=== PATIENT | female | born 1960 | race Caucasian/White ===

== ENCOUNTER 2018-06-27 09:49 | Inpatient (IN) | payer OTHER ==
--- NOTE | 2018-06-27 10:32 | ER ---
Nurse's Notes [facility] Name: Keisha Dave Age: 57 yrs Sex: Female : 1960 Arrival Date: 06/27/2018 Time: 09:52 Bed 6 Private MD: Deven Davis Diagnosis: Pneumonia due to other specified bacteria;Dyspnea;Fever, unspecified;Weakness;Atelectasis;Hypokalemia-hypophosphotemia Presentation: 06/27 09:55 Presenting complaint: Patient states: cough x 2 weeks ago. Pt states "they started aa5 treating me two weeks ago with penicillin for a throat infection and right now I am taking Keflex and Tamiflu". Pt reports productive cough with green sputum and SOB x 2 days ago. Pt reports chest pain and back pain. 09:55 Transition of care: patient was not received from another setting of care. Onset of aa5 symptoms was June 2018. Risk Assessment: Do you want to hurt yourself or someone else? Patient reports no desire to harm self or others. Care prior to arrival: None. 09:55 Acuity: CHRISTINE 3 aa5 09:55 Method Of Arrival: Wheelchair aa5 10:08 Initial Sepsis Screen: Does the patient meet any 2 criteria? RR > 20 per min. HR > 90 tw2 bpm. Does the patient have a suspected source of infection? Yes: Productive cough/pneumonia. Triage Assessment: 11:38 General: Appears in no apparent distress. Respiratory: Onset: The symptoms/episode tw2 began/occurred 2 weeks ago, the patient has mild shortness of breath. Historical: - Allergies: 09:55 No Known Allergies; aa5 - Home Meds: 09:55 Prozac 60mg daily Oral [Active]; aa5 - PMHx: 09:55 Hernia; aa5 - PSHx: 09:55 Hysterectomy; ; aa5 - Immunization history:: Flu vaccine is not up to date. - Social history:: Smoking status: Patient/guardian denies using tobacco. - Ebola Screening: : No symptoms or risks identified at this time. Screenin:07 Abuse screen: Denies threats or abuse. Nutritional screening: No deficits noted. tw2 Tuberculosis screening: No symptoms or risk factors identified. Fall Risk None identified. Assessment: 10:07 Respiratory: Reports shortness of breath cough that is productive, Airway is patent tw2 Respiratory effort is even, unlabored, Respiratory pattern is regular, symmetrical. 10:10 General: Appears in no apparent distress. Behavior is calm, cooperative, appropriate tw2 for age. Pain: Denies pain. Neuro: Level of Consciousness is awake, alert, obeys commands, Oriented to person, place, time, situation. Cardiovascular: Heart tones S1 S2 Patient's skin is warm and dry. Rhythm is regular. Respiratory: Respiratory pattern is tachypnea Breath sounds with wheezes in right posterior lower lobe and right posterior middle lobe and right lower lobe and right middle lobe. GI: No signs and/or symptoms were reported involving the gastrointestinal system. Abdomen is flat, Bowel sounds present X 4 quads. : No signs and/or symptoms were reported regarding the genitourinary system. EENT: Reports nasal congestion nasal discharge. Derm: No signs and/or symptoms reported regarding the dermatologic system. Musculoskeletal: Range of motion: intact in all extremities. 11:36 Reassessment: Patient appears in no apparent distress at this time. Patient and/or tw2 family updated on plan of care and expected duration. Pain level reassessed. Patient is alert, oriented x 3, equal unlabored respirations, skin warm/dry/pink. 12:02 Reassessment: Patient appears in no apparent distress at this time. Patient and/or tw2 family updated on plan of care and expected duration. Pain level reassessed. Patient is alert, oriented x 3, equal unlabored respirations, skin warm/dry/pink. 13:20 Reassessment: Patient appears in no apparent distress at this time. Patient and/or tw2 family updated on plan of care and expected duration. Pain level reassessed. Patient is alert, oriented x 3, equal unlabored respirations, skin warm/dry/pink. Vital Signs: 10:05 BP 111 / 83; Pulse 104; Resp 22; Temp 99.6(TE); Pulse Ox 100% on R/A; Weight 82.55 kg aa5 (R); Height 5 ft. 4 in. (162.56 cm) (R); Pain 10/10; 11:00 BP 121 / 68; Pulse 106; Resp 22; Pulse Ox 100% on R/A; tw2 12:01 BP 116 / 72; Pulse 112; Resp 22; Pulse Ox 100% on R/A; tw2 12:37 BP 111 / 81; Pulse 107; Resp 19; Pulse Ox 100% on R/A; tw2 10:05 Body Mass Index 31.24 (82.55 kg, 162.56 cm) aa5 ED Course: 09:52 Patient arrived in ED. mr 09:53 Deven Davis MD is Private Physician. mr 09:55 Arm band placed on. aa5 10:03 Thad Baptiste MD is Attending Physician. veronica 10:05 Triage completed. aa5 10:07 Kelly Castaneda RN is Primary Nurse. tw2 10:08 Bed in low position. Call light in reach. Adult w/ patient. gradall operator on. Pulse tw2 ox on. NIBP on. 10:27 Deven Davis MD is Hospitalizing Provider. veronica 10:29 Mary Fitzgerald MD is Hospitalizing Provider. veronica 10:30 Inserted saline lock: 20 gauge in right antecubital area, using aseptic technique. tw2 Blood collected. 10:47 EKG done, by cat scan tech. reviewed by Thad Baptiste MD. at1 11:26 X-ray completed. Portable x-ray completed in exam room. Patient tolerated procedure sw well. 11:28 XRAY Chest (1 view) In Process Unspecified. EDMS 12:38 Awaiting: attempted to call report at this time, was told nurse was giving insulin and tw2 would have to call me back. 13:20 No provider procedures requiring assistance completed. tw2 13:20 Patient admitted, IV remains in place. tw2 Administered Medications: 10:35 Drug: SOLU-Medrol 125 mg Route: IVP; Site: right antecubital; tw2 11:52 Follow up: Response: No adverse reaction tw2 10:39 Drug: NS 0.9% 1000 ml Route: IV; Rate: 1 bolus; Site: right antecubital; tw2 11:52 Follow up: Response: No adverse reaction; IV Status: Completed infusion; IV Intake: tw2 1000ml 10:39 Drug: Rocephin 2 grams Route: IV; Rate: per protocol; Site: right antecubital; tw2 10:49 Follow up: Response: No adverse reaction; IV Status: Completed infusion tw2 10:39 Drug: Albuterol - atroVENT (3:1) (2.5 mg - 0.5 mg) 3 ml Route: Nebulizer; tw2 11:53 Follow up: Response: No adverse reaction tw2 11:30 Drug: Zithromax 500 mg Route: IVPB; Infused Over: 1 hrs; Site: right antecubital; tw2 12:35 Follow up: IV Status: Completed infusion tw2 12:03 Drug: Potassium Effervescent Tablet 50 mEq Route: PO; tw2 12:39 Follow up: Response: No adverse reaction tw2 12:39 Drug: NS 0.9% with KCl 20 mEq/L 1000 ml Route: IV; Rate: 125 ml/hr; Site: right tw2 antecubital; 13:10 Follow up: IV Status: Infusion continued upon admission tw2 13:10 Not Given (pt admitted to floor, PEYTON Victoria aware to replace per protocol): Potassium tw2 Phosphate 15 mmol IV at per protocol once; dose as phosphate; infuse over 4-6 hours (mix in 250 mL NS) Intake: 11:52 IV: 1000ml; Total: 1000ml. tw2 Outcome: 10:32 Decision to Hospitalize by Provider. [facility] 13:20 Patient left the ED. tw2 13:20 Admitted to Med/surg accompanied by tech, via wheelchair. tw2 13:20 Condition: stable 13:20 Instructed on the need for admit. Signatures: Dispatcher [employer] EDThad Brantley MD MD cha Rivera, Jacquelyn ayers SuhNiharika, RN RN aa5 Nimo Garcia, armature winder repairer EKG Tat1 Carrie Raphael Tara RN RN tw2 Corrections: (The following items were deleted from the chart) 10:05 09:55 Presenting complaint: Patient states: cough x 2 weeks ago. Pt states "they aa5 started treating me two weeks ago with penicillin for a throat infection and right now I am taking Keflex and Tamiflu". Pt reports productive cough with green sputum and SOB x 2 days ago. aa5
[2018-06-27] MEDS ORDERED: CEFTRIAXONE/SWI 1gm 2 GM/20 ML SYR ONE (10:33)
[2018-06-27] MEDS ORDERED: IPRATROPIUM BROM 0.5MG/2.5ML ONE (10:33)
[2018-06-27] MEDS ORDERED: NA CHLORIDE 0.9% 1,000 ML ONE (10:33)
[2018-06-27] MEDS ORDERED: ALBUTEROL 2.5 MG/3 ML NEB SOL ONE (10:33)
--- NOTE | 2018-06-27 10:33 | EDPHYS ---
Physician Documentation [facility] Name: Keisha Dave Age: 57 yrs Sex: Female : 1960 Arrival Date: 06/27/2018 Time: 09:52 Bed 6 Private MD: Deven Davis ED Physician Thad Baptiste HPI: 06/27 10:17 This 57 yrs old Female presents to ER via Wheelchair with complaints of veronica Shortness Of Breath, Cough. 10:17 The patient has shortness of breath at rest, with light activity. Onset: The veronica symptoms/episode began/occurred 5 day(s) ago. Duration: The symptoms are continuous, and are steadily getting worse. The patient's shortness of breath has no apparent modifying factors. Associated signs and symptoms: The patient has no apparent associated signs or symptoms. Severity of symptoms: At their worst the symptoms were mild in the emergency department the symptoms are unchanged. The patient has not experienced similar symptoms in the past. Historical: - Allergies: 09:55 No Known Allergies; aa5 - Home Meds: 09:55 Prozac 60mg daily Oral [Active]; aa5 - PMHx: 09:55 Hernia; aa5 - PSHx: 09:55 Hysterectomy; ; aa5 - Immunization history:: Flu vaccine is not up to date. - Social history:: Smoking status: Patient/guardian denies using tobacco. - Ebola Screening: : No symptoms or risks identified at this time. ROS: 10:18 Constitutional: Negative for fever, chills, and weight loss, Eyes: Negative for injury, veronica pain, redness, and discharge, ENT: Negative for injury, pain, and discharge, Neck: Negative for injury, pain, and swelling, Cardiovascular: Negative for chest pain, palpitations, and edema, Abdomen/GI: Negative for abdominal pain, nausea, vomiting, diarrhea, and constipation, Back: Negative for injury and pain, : Negative for injury, bleeding, discharge, and swelling, MS/Extremity: Negative for injury and deformity, Skin: Negative for injury, rash, and discoloration, Neuro: Negative for headache, weakness, numbness, tingling, and seizure, Psych: Negative for depression, anxiety, suicide ideation, homicidal ideation, and hallucinations, Allergy/Immunology: Negative for hives, rash, and allergies, Endocrine: Negative for neck swelling, polydipsia, polyuria, polyphagia, and marked weight changes, Hematologic/Lymphatic: Negative for swollen nodes, abnormal bleeding, and unusual bruising. 10:18 Respiratory: Positive for cough, pleurisy, of the right subscapular area and right mid back, shortness of breath. Exam: 10:18 Constitutional: This is a well developed, well nourished patient who is awake, alert, veronica and in no acute distress. Head/Face: Normocephalic, atraumatic. Eyes: Pupils equal round and reactive to light, extra-ocular motions intact. Lids and lashes normal. Conjunctiva and sclera are non-icteric and not injected. Cornea within normal limits. Periorbital areas with no swelling, redness, or edema. ENT: Nares patent. No nasal discharge, no septal abnormalities noted. Tympanic membranes are normal and external auditory canals are clear. Oropharynx with no redness, swelling, or masses, exudates, or evidence of obstruction, uvula midline. Mucous membranes moist. Neck: Trachea midline, no thyromegaly or masses palpated, and no cervical lymphadenopathy. Supple, full range of motion without nuchal rigidity, or vertebral point tenderness. No Meningismus. Chest/axilla: Normal chest wall appearance and motion. Nontender with no deformity. No lesions are appreciated. Cardiovascular: Regular rate and rhythm with a normal S1 and S2. No gallops, murmurs, or rubs. Normal PMI, no JVD. No pulse deficits. Abdomen/GI: Soft, non-tender, with normal bowel sounds. No distension or tympany. No guarding or rebound. No evidence of tenderness throughout. Back: No spinal tenderness. No costovertebral tenderness. Full range of motion. Female : Normal external genitalia. Skin: Warm, dry with normal turgor. Normal color with no rashes, no lesions, and no evidence of cellulitis. MS/ Extremity: Pulses equal, no cyanosis. Neurovascular intact. Full, normal range of motion. Neuro: Awake and alert, GCS 15, oriented to person, place, time, and situation. Cranial nerves II-XII grossly intact. Motor strength 5/5 in all extremities. Sensory grossly intact. Cerebellar exam normal. Normal gait. Psych: Awake, alert, with orientation to person, place and time. Behavior, mood, and affect are within normal limits. 10:18 Respiratory: mild respiratory distress is noted, Respirations: labored breathing, that is mild, Breath sounds: bronchial sounds, decreased breath sounds, rhonchi, wheezing: inspiratory expiratory is heard in the right middle lobe, right lower lobe, right posterior middle lobe and right posterior lower lobe. Vital Signs: 10:05 BP 111 / 83; Pulse 104; Resp 22; Temp 99.6(TE); Pulse Ox 100% on R/A; Weight 82.55 kg aa5 (R); Height 5 ft. 4 in. (162.56 cm) (R); Pain 10/10; 11:00 BP 121 / 68; Pulse 106; Resp 22; Pulse Ox 100% on R/A; tw2 12:01 BP 116 / 72; Pulse 112; Resp 22; Pulse Ox 100% on R/A; tw2 12:37 BP 111 / 81; Pulse 107; Resp 19; Pulse Ox 100% on R/A; tw2 10:05 Body Mass Index 31.24 (82.55 kg, 162.56 cm) aa5 MDM: 10:03 Patient medically screened. [facility] [place] 10:21 Data reviewed: vital signs, nurses notes, lab test result(s), EKG, radiologic studies, veronica plain films. 06/27 10:17 Order name: Basic Metabolic Panel; Complete Time: 11:51 [facility] [place] 06/27 10:17 Order name: CBC with Diff; Complete Time: 11:39 [facility] [place] 06/27 10:17 Order name: LFT's; Complete Time: 11:51 [facility] [place] 06/27 10:17 Order name: Magnesium; Complete Time: 11:51 [facility] [place] 06/27 10:17 Order name: NT PRO-BNP; Complete Time: 11:51 [facility] [place] 06/27 10:17 Order name: PT-INR; Complete Time: 11:39 [facility] [place] 06/27 10:17 Order name: Troponin (emerg Dept Use Only); Complete Time: 11:51 [facility] [place] 06/27 10:17 Order name: XRAY Chest (1 view); Complete Time: 11:46 [facility] [place] 06/27 10:17 Order name: Blood Culture Adult (2) [facility] [place] 06/27 10:17 Order name: Procalcitonin; Complete Time: 11:39 [facility] [place] 06/27 11:50 Order name: Phosphorus 06/27 11:52 Order name: Urine Dipstick--Ancillary (enter results) 06/27 10:17 Order name: EKG; Complete Time: 10:18 [facility] [place] 06/27 10:17 Order name: Cardiac monitoring; Complete Time: 10: [facility] [place] 06/27 10:17 Order name: EKG - Nurse/Tech; Complete Time: 10:40 [facility] [place] 06/27 10:17 Order name: IV Saline Lock; Complete Time: 10:20 [facility] [place] 06/27 10:17 Order name: Labs collected and sent; Complete Time: 10:20 [facility] [place] 06/27 10:17 Order name: O2 Per Protocol; Complete Time: 10:20 [facility] [place] 06/27 10:17 Order name: O2 Sat Monitoring; Complete Time: 10:19 [facility] [place] Administered Medications: 10:35 Drug: SOLU-Medrol 125 mg Route: IVP; Site: right antecubital; tw2 11:52 Follow up: Response: No adverse reaction tw2 10:39 Drug: NS 0.9% 1000 ml Route: IV; Rate: 1 bolus; Site: right antecubital; tw2 11:52 Follow up: Response: No adverse reaction; IV Status: Completed infusion; IV Intake: tw2 1000ml 10:39 Drug: Rocephin 2 grams Route: IV; Rate: per protocol; Site: right antecubital; tw2 10:49 Follow up: Response: No adverse reaction; IV Status: Completed infusion tw2 10:39 Drug: Albuterol - atroVENT (3:1) (2.5 mg - 0.5 mg) 3 ml Route: Nebulizer; tw2 11:53 Follow up: Response: No adverse reaction tw2 11:30 Drug: Zithromax 500 mg Route: IVPB; Infused Over: 1 hrs; Site: right antecubital; tw2 12:35 Follow up: IV Status: Completed infusion tw2 12:03 Drug: Potassium Effervescent Tablet 50 mEq Route: PO; tw2 12:39 Follow up: Response: No adverse reaction tw2 12:39 Drug: NS 0.9% with KCl 20 mEq/L 1000 ml Route: IV; Rate: 125 ml/hr; Site: right tw2 antecubital; 13:10 Follow up: IV Status: Infusion continued upon admission tw2 13:10 Not Given (pt admitted to floor, PEYTON Victoria aware to replace per protocol): Potassium tw2 Phosphate 15 mmol IV at per protocol once; dose as phosphate; infuse over 4-6 hours (mix in 250 mL NS) Disposition: 06/27/18 10:32 Hospitalization ordered by Mary Fitzgerald for Inpatient Admission. Preliminary diagnosis are Pneumonia due to other specified bacteria, Dyspnea, Fever, unspecified, Weakness, Atelectasis, Hypokalemia - hypophosphotemia. - Bed requested for Telemetry/MedSurg (Inpatient). - Status is Inpatient Admission. tw2 - Condition is Fair. - Problem is new. - Symptoms have improved. UTI on Admission? No Signatures: Dispatcher [employer] EDMS Carolyn Angel RN RN dw Thad Baptiste MD MD cha Calderon, Audri RN RN aa5 Kelly Castaneda RN RN tw2 Corrections: (The following items were deleted from the chart) 11:51 10:32 Hospitalization Ordered by Mary Fitzgerald MD for Inpatient Admission. Preliminary veronica diagnosis is Pneumonia due to other specified bacteria; Dyspnea; Fever, unspecified; Weakness. Bed requested for Telemetry/MedSurg (Inpatient). Status is Inpatient Admission. Condition is Fair. Problem is new. Symptoms have improved. UTI on Admission? No. veronica 12:26 11:51 06/27/2018 10:32 Hospitalization Ordered by Mary Fitzgerald MD for Inpatient dw Admission. Preliminary diagnosis is Pneumonia due to other specified bacteria; Dyspnea; Fever, unspecified; Weakness; Atelectasis; Hypokalemia. Bed requested for Telemetry/MedSurg (Inpatient). Status is Inpatient Admission. Condition is Fair. Problem is new. Symptoms have improved. UTI on Admission? No. veronica 13:04 12:26 06/27/2018 10:32 Hospitalization Ordered by Mary Fitzgerald MD for Inpatient veronica Admission. Preliminary diagnosis is Pneumonia due to other specified bacteria; Dyspnea; Fever, unspecified; Weakness; Atelectasis; Hypokalemia. Bed requested for Telemetry/MedSurg (Inpatient). Status is Inpatient Admission. Condition is Fair. Problem is new. Symptoms have improved. UTI on Admission? No. divina 13:20 13:04 06/27/2018 10:32 Hospitalization Ordered by Mary Fitzgerald MD for Inpatient tw2 Admission. Preliminary diagnosis is Pneumonia due to other specified bacteria; Dyspnea; Fever, unspecified; Weakness; Atelectasis; Hypokalemia - hypophosphotemia. Bed requested for Telemetry/MedSurg (Inpatient). Status is Inpatient Admission. Condition is Fair. Problem is new. Symptoms have improved. UTI on Admission? No. veronica
[2018-06-27] MEDS ORDERED: METHYLPREDNISOLONE 125 MG INJ ONE (10:36)
[2018-06-27] MEDS ORDERED: AZITHROMYCIN IV 500 MG in NA CHLORIDE 0.9% 250 ML IVPB ONE (10:45)
[2018-06-27 11:03] LABS: Absolute Lymphocytes (CBC) 1.3 K/uL (0.7-4.9); Absolute Monocytes 0.7 K/uL (0.1-1.3); Absolute Neutrophil 8.8 K/uL (1.8-8.0); Basophils % 0.3 % (0-1.3); Eosinophils % 0.3 % (0-4.4); Hematocrit 40.4 % (36.0-45.0); Lymphocytes % 12.1 % (15.3-44.8); MPV 9.5 fL (7.6-11.3); Monocytes % 6.6 % (3.3-12.3); Protime INR 1.1; RBC Red Blood Cell Count 4.38 M/uL (3.86-4.86)
--- NOTE | 2018-06-27 11:38 | RAD REPORT ---
EXAM DESCRIPTION: Linda Single View06/27/2018 11:26 am CLINICAL HISTORY: Cough COMPARISON: 2017 FINDINGS: Mild left upper lobe opacity suspected. Remainder lungs appear clear of acute infiltrate. The heart is normal size IMPRESSION: Mild left upper lobe opacity is suspected suspicious for a mild pneumonia. This should b e followed until it is clear to help exclude a post obstructive process/underlying mass
[2018-06-27 11:40] LABS: ALT/SGPT 42 U/L (12-78); AST/SGOT 31 U/L (15-37); Albumin 3.7 g/dL (3.4-5.0); Alkaline Phosphatase 109 U/L (45-117); BUN Blood Urea Nitrogen 12 mg/dL (7-18); Bicarbonate 26 mmol/L (21-32); Bilirubin Direct 0.2 mg/dL (0-0.2); Bilirubin Total 0.8 mg/dL (0.2-1.0); Glucose Level 119 mg/dL (74-106); NT PRO-BNP 46 pg/mL (<125); Protein, Total 8.2 g/dL (6.4-8.2); Sodium Level 135 mmol/L (136-145); Troponin (Emerg Dept Use Only) < 0.02 ng/mL (0.0-0.045)
[2018-06-27 11:46] LABS: Potassium 2.6 mmol/L (3.5-5.1)
[2018-06-27] MEDS ORDERED: POTASSIUM 25 MEQ EFFERV TAB ONE (12:07)
[2018-06-27] MEDS ORDERED: NS KCL 20MEQ 1,000 ML IV ONE (12:07)
--- NOTE | 2018-06-27 12:22 | P.HP ---
Patient History Date of Service: 06/27/18 History of Present Illness: This is a 57-year-old female with a past medical history depression admitted for pneumonia. Per patient, she has been feeling very sick for the past 1-2 weeks, with cough and congestion along with sore throat. She went to her primary care physician and she was sent in a prescription for penicillin based antibiotic that she took oral. Progressively, she got worst even after the dose of antibiotics. She started developing fever along with body aches. She again returned to her primary care physician and she was switched to Keflex and she will also was sent for Tamiflu. She has not completed a course of Tamiflu yet but almost half of it. Even after the change to Keflex and the Tamiflu, she has been progressively getting worse. Now she has developed pain in the right lower chest area along with cough and states that it feels like a stabbing pain. She continues to have intermittent fevers and chills. She denies any abdominal pain, nausea, headache, dizziness, lightheadedness, syncopal versus presyncopal episode. This is why she could came to the ER. In the ER, she was tachycardic, tachypneic. She was noted to have a potassium of 2.6. She did not have a white count and her other lab work was pretty unremarkable. At the time of my exam, patient was alert oriented x3 in mild to moderate distress, tachycardic to 112 with stable blood pressures. Allergies No Known Allergies Allergy (Unverified 06/27/18 10:29) Home Medications: Memantine HCl [Namenda] 10 mg PO BEDTIME 03/05/15 Codeine/APAP [Tylenol #3*] 1 tab PO Q4HP PRN #20 01/01/17 NaCl 0.9% Irr Bottle [Ns Irrigation Bottle] 1,000 ml IR DAILY #1 btl 01/01/17 - Past Medical/Surgical History Diabetic: No -: Depression -: bilat knee sx -: -: hysterectomy -: tummy tuck -: back sx - Social History Smoking Status: Never smoker Alcohol use: Yes CD- Drugs: No Caffeine use: No Review of Systems 10-point ROS is otherwise unremarkable Physical Examination - Physical Exam General: Alert, In no apparent distress, Oriented x3 HEENT: Atraumatic, PERRLA, Mucous membr. moist/pink, EOMI, Sclerae nonicteric Neck: Supple, 2+ carotid pulse no bruit, No LAD, Without JVD or thyroid abnormality Respiratory: Clear to auscultation bilaterally, Normal air movement Cardiovascular: Normal S1 S2, Irregular heart rate/rhythm (Tachycardic) Gastrointestinal: Normal bowel sounds, No tenderness Musculoskeletal: No tenderness Integumentary: No rashes Neurological: Normal gait, Normal speech, Normal strength at 5/5 x4 extr, Normal tone, Normal affect Lymphatics: No axilla or inguinal lymphadenopathy - Studies Laboratory Data (last 24 hrs) 06/27/18 10:15: PT 12.9 H, INR 1.10 06/27/18 10:15: WBC 10.9, Hgb 14.1, Hct 40.4, Plt Count 316 06/27/18 10:15: Sodium 135 L, Potassium 2.6 L*, BUN 12, Creatinine 0.81, Glucose 119 H, Magnesium 2.0, Total Bilirubin 0.8, AST 31, ALT 42, Alkaline Phosphatase 109 Assessment and Plan - Problems (Diagnosis) (1) Left upper lobe pneumonia Current Visit: Yes Status: Acute (2) Tachycardia Current Visit: Yes Status: Acute (3) Hypokalemia Current Visit: Yes Status: Acute (4) History of depression Current Visit: Yes Status: Acute (5) Failure of outpatient treatment Current Visit: Yes Status: Acute - Plan This is a 57-year-old female with: Left upper lobe pneumonia Failed outpatient treatment. Chest x-ray with evidence of left upper lobe pneumonia. If no improvement in pneumonia/status, will get a CT of chest. Patient does have a titanium plate in the arm, will confirm with radiology if any issues. IV antibiotics with Rocephin and azithromycin. Breathing treatments as needed Oxygen per protocol Repeat chest x-ray tomorrow Tachycardia Likely secondary to breathing treatments. Will continue to monitor with tele Hypokalemia Repeat per protocol Monitor via a.m. labs History of depression Stable. Denies any homicidal suicidal ideations. Will continue home medications once reconciled DVT prophylaxis: Lovenox GI prophylaxis: None Diet: Regular Disposition: Admit to floor with tele. Pending symptomatic improvement. - Advance Directives Does patient have a Living Will: No Does patient have a Durable POA for Healthcare: No Time Spent Managing Pts Care (In Minutes): 55
[2018-06-27] MEDS ORDERED: ACETAMINOPHEN 500 MG TAB PO PRN (13:41)
[2018-06-27] MEDS: NA CHLORIDE 0.9% 1,000 ML IV SCH ×3 (13:41→21:45)
[2018-06-27] MEDS ORDERED: ONDANSETRON 4 MG/2 ML VIAL IV PRN (13:41)
[2018-06-27] MEDS ORDERED: POTASSIUM PHOS IN 0.9 % NACL 15 MMOL/250 ML BAG IV ONE (14:00)
[2018-06-27 14:58] VITALS: BMI 30.7
[2018-06-27] MEDS ORDERED: POTASSIUM PHOS 30 MM in NA CHLORIDE 0.9% 500 ML IV ONE (15:00)
[2018-06-27] MEDS ORDERED: INFLUENZA VACCINE (for 3y+) 0.5 ML DOSE IMVAC ONE (15:00)
[2018-06-27] MEDS: ENOXAPARIN 40 MG/0.4 ML SQ SCH (15:28)
[2018-06-27] MEDS ORDERED: BENZONATATE 100 MG CAP PO PRN (17:23)
--- NOTE | 2018-06-27 17:25 | EKG ---
Test Date: 2018-06-27 Test Time: 10:37:18 Deputy Editor In Chief: ASÚL MEASUREMENT RESULTS: Intervals: Rate: 94 ID: [id number] QRSD: 84 QT: 470 QTc: 587 [place]: P: -10 ID: [id number] QRS: 33 T: 3 INTERPRETIVE STATEMENTS: Sinus rhythm with short ID Nonspecific ST and T wave abnormality Prolonged QT Abnormal ECG Compared to ECG 01/01/2017 08:55:59 Short ID interval now present ST (T wave) deviation now present Prolonged QT interval now present Electronically Signed On 06-27-18 17:24:27 LODGING FACILITIES ATTENDANT by Joshua Piña
[2018-06-27] MEDS: TRAMADOL HCL 50 MG TAB PO PRN ×2 (18:13→23:46)
[2018-06-27 20:43] LABS: Urine Appearance CLEAR; Urine Bilirubin NEGATIVE (NEG); Urine Blood NEGATIVE (NEG); Urine Color YELLOW; Urine Glucose 1+ (NEG); Urine Protein NEGATIVE (NEG)
[2018-06-27 21:16] LABS: Urine Microscopic Reflex NO UMIC
[2018-06-27] MEDS: CEFTRIAXONE/SWI 1gm 1 GM/10 ML SYR IVP SCH (21:45)
[2018-06-28 06:16] LABS: Absolute Lymphocytes (CBC) 1.1 K/uL (0.7-4.9); Absolute Monocytes 0.7 K/uL (0.1-1.3); Absolute Neutrophil 6.2 K/uL (1.8-8.0); Basophils % 0.1 % (0-1.3); Eosinophils % 0.1 % (0-4.4); Hematocrit 30.9 % (36.0-45.0); Lymphocytes % 13.6 % (15.3-44.8); MPV 9.3 fL (7.6-11.3); Monocytes % 9.1 % (3.3-12.3); RBC Red Blood Cell Count 3.31 M/uL (3.86-4.86)
[2018-06-28 06:26] LABS: ALT/SGPT 60 U/L (12-78); AST/SGOT 38 U/L (15-37); Albumin 2.9 g/dL (3.4-5.0); Alkaline Phosphatase 85 U/L (45-117); BUN Blood Urea Nitrogen 8 mg/dL (7-18); Bicarbonate 26 mmol/L (21-32); Bilirubin Total 0.3 mg/dL (0.2-1.0); Glucose Level 117 mg/dL (74-106); Phosphorus 3.2 mg/dL (2.5-4.9); Potassium 4.3 mmol/L (3.5-5.1); Protein, Total 6.3 g/dL (6.4-8.2); Sodium Level 142 mmol/L (136-145)
--- NOTE | 2018-06-28 08:28 | RAD REPORT ---
EXAM DESCRIPTION: RAD - Chest Pa And Lat (2 Views) - 06/28/2018 6:59 am CLINICAL HISTORY: PNA management Chest pain. COMPARISON: Chest Single View dated 06/27/2018; Chest Pa And Lat (2 Views) dated 11/28/2016; Chest Pa And Lat (2 Views) dated 07/27/2016; CHEST PA AND LAT 2 VIEW dated 07/31/2013 FINDINGS: The reticular opacity in the left mid lung and lingula appear essentially unchanged since comparative study. The lungs are otherwise clear. The heart is upper limit of normal in size. No disp laced fractures. Mild dextroscoliosis of the thoracic spine. IMPRESSION: Stable small infiltrate in the left mid lung and lingula.
[2018-06-28] MEDS: AZITHROMYCIN IV 500 MG in NA CHLORIDE 0.9% 250 ML IVPB SCH (09:30)
[2018-06-28] MEDS: TRAMADOL HCL 50 MG TAB PO PRN ×3 (09:31→23:20)
[2018-06-28] MEDS: CEFTRIAXONE/SWI 1gm 1 GM/10 ML SYR IVP SCH ×2 (09:31→20:07)
[2018-06-28] MEDS: ENOXAPARIN 40 MG/0.4 ML SQ SCH (09:32)
[2018-06-28] MEDS: NA CHLORIDE 0.9% 1,000 ML IV SCH ×2 (09:41→20:06)
[2018-06-28] MEDS: GUAIFENESIN/CODEINE 5ML UCUP PO PRN ×2 (13:08→20:07)
--- NOTE | 2018-06-28 19:58 | PN ---
Date of Progress Note: 06/28/2018 Subjective: The patient seen and examined. Chart reviewed and case discussed with RN. The patient states she feels better, but still having significant amount of cough and some shortness of breath. Medications: List reviewed. Physical Examination: Vital Signs: Temperature 97.5, heart rate 91, blood pressure 124/80, respirations 18, O2 96% on room air. General: Awake, alert, oriented x3. Ill-appearing female, obese, BMI of 30. CV: S1, S2. Regular rate and rhythm. Peripheral pulses present. Respiratory: Diminished breath sounds. Some rhonchi heard. The patient is slightly tachypneic. No use of accessory muscles. Gastrointestinal: Abdomen is soft, nontender, nondistended. Positive bowel sounds. No guarding or rigidity. Extremities: No clubbing, cyanosis, or edema. Neurologic: Nonfocal. Laboratory Data: Sodium 142, potassium 4.3, chloride 110, CO2 26, BUN 8, creatinine 0.51, glucose 11 7, calcium 8.3, phosphorus 3.2. WBC 8.1, H and H 10.7 and 30.9, platelets 263, neutrophils 77%. Blo od cultures, no growth to date. Chest x-ray, personally reviewed, shows stable small infiltrate in t he left mid lung and lingula. Assessment And Plan: A 57-year-old female with: 1.Left upper lobe pneumonia. Continue with IV antibiotics and follow up on cultures. The patient i s still having significant amount of cough, minimal shortness of breath. Continue supportive care. 2.Hypokalemia, corrected. We will continue to monitor. 3.Major depressive disorder, single episode, recurrent. We will continue SSRI. 4.Failure of outpatient treatment. 5.Obesity, BMI 30.7. Plan: Continue antibiotics. Follow up on cultures. Repeat chest x-ray shows stable infiltrate, lik cristo discharge in the next 24 to 48 hours depending on clinical response. We will resume home medications as appropriate. We will add R obitussin with codeine for cough. SA/MODL Voice ID: [id number] Report ID: [id number]
[2018-06-28] MEDS: FLUOXETINE 20 MG CAP PO SCH (20:07)
[2018-06-29] MEDS: GUAIFENESIN/CODEINE 5ML UCUP PO PRN (05:27)
[2018-06-29] MEDS: TRAMADOL HCL 50 MG TAB PO PRN ×2 (05:27→16:39)
[2018-06-29 05:29] LABS: Absolute Lymphocytes (CBC) 1.9 K/uL (0.7-4.9); Absolute Monocytes 0.6 K/uL (0.1-1.3); Absolute Neutrophil 4.5 K/uL (1.8-8.0); Basophils % 0.5 % (0-1.3); Eosinophils % 2.5 % (0-4.4); Hematocrit 30.9 % (36.0-45.0); Lymphocytes % 25.9 % (15.3-44.8); MPV 9.1 fL (7.6-11.3); Monocytes % 8.7 % (3.3-12.3)
[2018-06-29] MEDS: NA CHLORIDE 0.9% 1,000 ML IV SCH ×2 (05:31→14:17)
[2018-06-29 05:41] LABS: ALT/SGPT 48 U/L (12-78); AST/SGOT 22 U/L (15-37); Albumin 2.8 g/dL (3.4-5.0); Alkaline Phosphatase 80 U/L (45-117); BUN Blood Urea Nitrogen 7 mg/dL (7-18); Bicarbonate 29 mmol/L (21-32); Bilirubin Total 0.3 mg/dL (0.2-1.0); Glucose Level 80 mg/dL (74-106); Potassium 3.9 mmol/L (3.5-5.1); Protein, Total 6.1 g/dL (6.4-8.2); Sodium Level 142 mmol/L (136-145)
[2018-06-29] MEDS ORDERED: POTASSIUM 25 MEQ EFFERV TAB PO ONE (06:07)
[2018-06-29] MEDS: CEFTRIAXONE/SWI 1gm 1 GM/10 ML SYR IVP SCH ×2 (09:00→21:57)
[2018-06-29] MEDS: ENOXAPARIN 40 MG/0.4 ML SQ SCH (09:30)
[2018-06-29] MEDS: AZITHROMYCIN IV 500 MG in NA CHLORIDE 0.9% 250 ML IVPB SCH (09:31)
[2018-06-29] MEDS: LIDOCAINE 5% PATCH TOP SCH (10:56)
[2018-06-29] MEDS ORDERED: ALBUTEROL 2.5 MG/3 ML NEB SOL NEB PRN (13:31)
--- NOTE | 2018-06-29 18:47 | PN ---
Date of Progress Note: 06/29/2018 Subjective: The patient is seen and examined. Chart reviewed and case discussed with RN. The patient is still having significant amount of cough with minimal sputum production. She does complain of significant pain in her ribs from coughing, states she heard a pop last night. No falls. Medications: List reviewed. Physical Examination: Vital Signs: Temperature 97.4, heart rate 82, blood pressure 135/82, respirations 18, and O2 of 98% on room air. General: Awake, alert, and oriented x3, ill-appearing female, obese, in moderate distress. CV: S1 and S2. Regular rate and rhythm. Peripheral pulses present. Respiratory: Diminished breath sounds. Some rhonchi heard. No wheezing or stridor. Gastrointestinal: Abdomen is soft, nontender, and nondistended. Positive bowel sounds. Extremities: No clubbing, cyanosis, or edema. Musculoskeletal: The patient has point tenderness around the lateral right rib cage. Neurologic: Nonfocal. Laboratory Data: Sodium 142, potassium 3.9, chloride 109, CO2 of 29, BUN 7, creatinine 0.54, glucose 80, and calcium 7.9. WBC 7.3, H and H of 10.6 and 30.9 , platelets 285, neutrophils 62%. Assessment And Plan: A 57-year-old female with, 1. Left upper lobe pneumonia. Continue antibiotics. Cultures do not show any growth to date. The patient's WBC count is normal. Continues to have significant amount of cough and pain in her ribs, not moving air well, at risk for developing atelectasis and worsening pneumonia. We will add incentive spirometer and lidocaine for pain control. 2. Electrolyte abnormality, corrected. 3. Failure of outpatient treatment. 4. Major depressive disorder, single episode, recurrent. Continue SSRI. 5. Right lateral rib pain related to recurrent cough. We will place lidocaine patch and continue with incentive spirometer. 6. Obesity, BMI of 30.7. 7. Deep venous thrombosis prophylaxis with Lovenox. PLAN: Likely discharge in the next 24 hours if pain improves, able to take deeper breaths and cultures remain negative. SA/MODL Voice ID: [id number] Report ID: [id number] [facility]
[2018-06-29] MEDS: FLUOXETINE 20 MG CAP PO SCH (21:57)
[2018-06-30] MEDS: TRAMADOL HCL 50 MG TAB PO PRN (00:13)
[2018-06-30] MEDS: NA CHLORIDE 0.9% 1,000 ML IV SCH (04:02)
[2018-06-30 04:48] LABS: Absolute Lymphocytes (CBC) 1.7 K/uL (0.7-4.9); Absolute Monocytes 0.7 K/uL (0.1-1.3); Absolute Neutrophil 3.9 K/uL (1.8-8.0); Basophils % 0.5 % (0-1.3); Eosinophils % 3.3 % (0-4.4); Hematocrit 32.3 % (36.0-45.0); MPV 8.5 fL (7.6-11.3); Monocytes % 10.7 % (3.3-12.3); RBC Red Blood Cell Count 3.46 M/uL (3.86-4.86)
[2018-06-30 04:57] LABS: ALT/SGPT 36 U/L (12-78); AST/SGOT 13 U/L (15-37); Alkaline Phosphatase 81 U/L (45-117); BUN Blood Urea Nitrogen 6 mg/dL (7-18); Bicarbonate 27 mmol/L (21-32); Bilirubin Total 0.4 mg/dL (0.2-1.0); Glucose Level 82 mg/dL (74-106); Potassium 3.6 mmol/L (3.5-5.1); Protein, Total 6.4 g/dL (6.4-8.2); Sodium Level 140 mmol/L (136-145)
[2018-06-30] MEDS ORDERED: POTASSIUM 25 MEQ EFFERV TAB PO ONE (06:00)
[2018-06-30] MEDS: ENOXAPARIN 40 MG/0.4 ML SQ SCH (09:00)
[2018-06-30] MEDS: AZITHROMYCIN IV 500 MG in NA CHLORIDE 0.9% 250 ML IVPB SCH (09:50)
[2018-06-30] MEDS: CEFTRIAXONE/SWI 1gm 1 GM/10 ML SYR IVP SCH (09:50)
[2018-06-30] MEDS: LIDOCAINE 5% PATCH TOP SCH (09:51)
[2018-06-30 12:34] VITALS: BP 142/69; TEMP 98.2
[2018-06-30 13:26] VITALS: O2SAT 95
--- NOTE | 2018-07-01 00:57 | DS ---
Date of Discharge: 06/30/2018 Admitting Diagnoses: 1.Left upper lobe pneumonia, failed outpatient treatment. 2.Sinus tachycardia. 3.Hypokalemia. 4.Major depressive disorder. Discharge Diagnoses: 1.Left upper lobe pneumonia, failed outpatient treatment, improving. 2.Hypokalemia, replaced. 3.Failure of outpatient treatment. 4.Major depressive disorder, single episode, recurrent, on SSRI. 5.Right lateral rib pain related to recurrent cough, improved. 6.Obesity, body mass index of 30.7. Hospital Course: The patient is a 57-year-old female, admitted to the hospital for pneumonia after f ailing outpatient treatment with oral antibiotics. The patient had been switched to Keflex after pen icillin and was also given Tamiflu. The patient was started on IV antibiotics. She responded well t o treatment. She did have some low potassium which was corrected, as well as phosphorus which was re placed. The patient did well overall. Her coughing improved. She did have significant amount of co ugh, which required Robitussin A-C for relief. The patient also complained of some lateral chest wal l pain related to the cough. Her blood cultures remained negative. Her chest x-ray showed stable in filtrate in the left midlung and lingula. The patient was able to ambulate without getting short of breath. She was not requiring oxygen. She was not septic. Her procalcitonin was negative and did n ot have an elevated white blood cell count. The patient was then cleared for discharge as she had re sponded well to treatment. Medications: As per medication reconciliation list. Followup: Follow up with primary care physician in 2 to 3 days. Return to ER for worsening conditio n. Diet: Heart healthy. Activity: As tolerated. Physical Examination: General: Awake, alert, oriented x3, obese female, no acute distress. CV: S1, S2. No murmurs. Respiratory: Moving air well bilaterally. No wheezing. Gastrointestinal: Abdomen is soft, nontender, nondistended. Positive bowel sounds. Extremities: No clubbing, cyanosis, or edema. Neurologic: Nonfocal. Total time spent discharging the patient was 37 minutes. /REI Voice ID: [id number] Report ID: [id number]
== END 2018-06-30 13:10 | disposition home or self-care (01) | DRG 194 ==
LOC: ER 09:49 → ERHOLD 12:10 → 2ND 13:10
PROVIDERS: ADMIT Family Medicine; ATTEND Family Medicine
DX: J18.1 Lobar pneumonia, unspecified organism (principal); F33.9 Major depressive disorder, recurrent, unspecified; E87.6 Hypokalemia; R07.81 Pleurodynia; R05 Cough; R00.0 Tachycardia, unspecified; E66.9 Obesity, unspecified; Z68.30 Body mass index [BMI] 30.0-30.9, adult
CPT/HCPCS: 36415; 71045; 71046; 80048; 80053; 80076; 81003; 83735; 83880; 84100; 84132; 84145; 84484; 85025; 85610; 87040; 93005; 94640; 94760; 96361; 96365; 96375; 99285; G0008; J0456; J0696; J1650; J2405; J2930; J7030; Q2035

== ENCOUNTER 2020-02-21 11:03 | Emergency (ER) | payer OTHER ==
[2020-02-21] MEDS ORDERED: HYDROCODONE/APAP 7.5/325 MG TAB ONE (11:55)
--- NOTE | 2020-02-21 12:03 | RAD REPORT ---
EXAM DESCRIPTION: CT - CTHCSPWOC - 02/21/2020 11:51 am CLINICAL HISTORY: head injury;Painfall, posterior head trauma, neck pain COMPARISON: No comparisons TECHNIQUE: Axial 5 mm thick images of the head were obtained. Axial 2 mm thick images of the cervic al spine were obtained with sagittal and coronal reconstruction images generated and reviewed. All CT scans are performed using dose optimization technique as appropriate and may include automated exposure control or mA/KV adjustment according to patient size. FINDINGS: No intracranial hemorrhage, mass, edema or acute intracranial finding. No suspicion for ac three affiliated infarction. No extra-axial fluid collections. Mastoid air cells and paranasal sinuses are clear. No globe or orbit abnormality seen. Ventricles are normal. No significant atrophy or chronic ischemic change. Cervical body height and alignment are normal. Mild disc space narrowing at C4-5, C5-6 and C6-7. Endp late spurring and mild uncovertebral joint hypertrophy seen. Bilateral bony foraminal encroachment at C4-5 and C5-6. Foraminal encroachment is minimal at C6-7. No fracture or acute bony abnormality. Ce ntral canal detail is inherently limited. No paraspinal mass or hematoma. IMPRESSION: No hemorrhage or acute intracranial abnormality. Cervical spine degenerative change as detailed. No fracture or acute finding seen.
--- NOTE | 2020-02-21 12:47 | EDPHYS ---
Physician Documentation [facility] Name: Keisha Dave Age: 59 yrs Sex: Female : 1960 Arrival Date: 02/21/2020 Time: 11:09 Bed 14 Private MD: ED Physician Natan Zhang HPI: 02/20 14:22 This 59 yrs old Female presents to ER via Ambulatory with complaints of Fall kdr Injury. 14:22 Details of fall: The patient fell from a height, from a ladder, approximately 3 feet, kdr from an upright position, while standing. Onset: The symptoms/episode began/occurred suddenly, last night. Associated injuries: The patient sustained injury to the head, contusion, pain, tenderness. Severity of symptoms: At their worst the symptoms were mild, in the emergency department the symptoms are unchanged. The patient has not experienced similar symptoms in the past. The patient has not recently seen a physician. The patient was standing on a short stool reaching the top of her drapes when she lost her balance and fell hitting the right side of her body on a desk including her head. Today, she has a persistent mild GOEL, slight dizziness especially when she closes her eyes. She is otherwise stable and only c/o pain to the right elbow. Historical: - Allergies: 11:16 No Known Allergies; ca1 - Home Meds: 11:16 Prozac 60mg daily Oral [Active]; ca1 - PMHx: 11:16 Hernia; ca1 - PSHx: 11:16 Hysterectomy; ; ca1 - Immunization history:: Adult Immunizations up to date. - Social history:: Smoking status: Patient denies any tobacco usage or history of. ROS: 14:32 Constitutional: Negative for fever, chills, and weight loss, Eyes: Negative for injury, kdr pain, redness, and discharge, ENT: Negative for injury, pain, and discharge, Neck: Negative for injury, pain, and swelling, Cardiovascular: Negative for chest pain, palpitations, and edema, Respiratory: Negative for shortness of breath, cough, wheezing, and pleuritic chest pain, Abdomen/GI: Negative for abdominal pain, nausea, vomiting, diarrhea, and constipation, Back: Negative for injury and pain, : Negative for injury, bleeding, discharge, and swelling, Psych: Negative for depression, anxiety, suicide ideation, homicidal ideation, and hallucinations, Allergy/Immunology: Negative for hives, rash, and allergies, Endocrine: Negative for neck swelling, polydipsia, polyuria, polyphagia, and marked weight changes, Hematologic/Lymphatic: Negative for swollen nodes, abnormal bleeding, and unusual bruising. 14:32 MS/extremity: Positive for Abrasions and contusions ot the upper and lower extremities on the right. Exam: 14:32 Constitutional: This is a well developed, well nourished patient who is awake, alert, kdr and in no acute distress. Head/Face: Normocephalic, atraumatic. Eyes: Pupils equal round and reactive to light, extra-ocular motions intact. Lids and lashes normal. Conjunctiva and sclera are non-icteric and not injected. Cornea within normal limits. Periorbital areas with no swelling, redness, or edema. Neck: Trachea midline, no thyromegaly or masses palpated, and no cervical lymphadenopathy. Supple, full range of motion without nuchal rigidity, or vertebral point tenderness. No Meningismus. Chest/axilla: Normal chest wall appearance and motion. Nontender with no deformity. No lesions are appreciated. Cardiovascular: Regular rate and rhythm with a normal S1 and S2. No gallops, murmurs, or rubs. Normal PMI, no JVD. No pulse deficits. Respiratory: Lungs have equal breath sounds bilaterally, clear to auscultation and percussion. No rales, rhonchi or wheezes noted. No increased work of breathing, no retractions or nasal flaring. Abdomen/GI: Soft, non-tender, with normal bowel sounds. No distension or tympany. No guarding or rebound. No evidence of tenderness throughout. Back: No spinal tenderness. No costovertebral tenderness. Full range of motion. Neuro: Awake and alert, GCS 15, oriented to person, place, time, and situation. Cranial nerves II-XII grossly intact. Motor strength 5/5 in all extremities. Sensory grossly intact. Cerebellar exam normal. Normal gait. Psych: Awake, alert, with orientation to person, place and time. Behavior, mood, and affect are within normal limits. 14:32 Skin: Appearance: normal except for affected area, ecchymosis, that are mild, injury, contusion(s), that are superficial, of the right arm and right leg. Vital Signs: 11:12 BP 130 / 97; Pulse 86; Resp 15 S; Temp 97.1(TE); Pulse Ox 99% on R/A; Weight 79.38 kg ca1 (R); Height 5 ft. 4 in. (162.56 cm) (R); Pain 5/10; 11:12 Body Mass Index 30.04 (79.38 kg, 162.56 cm) ca1 MDM: 12:40 Patient medically screened. jr8 12:41 Data reviewed: vital signs, nurses notes, radiologic studies, CT scan. Data jr8 interpreted: Pulse oximetry: on room air is 99 %. Interpretation: normal. Counseling: I had a detailed discussion with the patient and/or guardian regarding: the historical points, exam findings, and any diagnostic results supporting the discharge/admit diagnosis, radiology results, the need for outpatient follow up, a family practitioner, to return to the emergency department if symptoms worsen or persist or if there are any questions or concerns that arise at home. 02/20 11:28 Order name: CT Head C Spine; Complete Time: 12:41 kdr Administered Medications: 11:44 Drug: Pratts (7.5 mg-325 mg) 1 tabs Route: PO; ss 12:53 Follow up: Response: No adverse reaction ss Disposition: 14:44 Co-signature as Attending Physician, Natan Zhang MD I agree with the assessment and kdr plan of care. Disposition: 02/21/20 12:46 Discharged to Home. Impression: Acute pain due to trauma, Concussion. - Condition is Stable. - Discharge Instructions: Concussion, Adult, Head Injury, Adult. - Prescriptions for Ibuprofen 800 mg Oral Tablet - take 1 tablet by ORAL route every 12 hours As needed take with food; 20 tablet. Zofran 4 mg Oral Tablet - take 1 tablet by ORAL route every 12 hours As needed; 20 tablet. - Medication Reconciliation Form, Thank You Letter, Antibiotic Education, Prescription Opioid Use form. - Follow up: Private Physician; When: 2 - 3 days; Reason: Recheck today's complaints, Continuance of care, Re-evaluation by your physician. - Problem is new. - Symptoms have improved. Signatures: Dispatcher [employer] EDFL Natan Zhang MD MD [facility] Marium Neumann RN RN ss Cristopher Aguayo PA PA jr8 Kaila Martínez RN RN ca1 Corrections: (The following items were deleted from the chart) 12:53 12:46 02/21/2020 12:46 Discharged to Home. Impression: Acute pain due to trauma; ss Concussion. Condition is Stable. Forms are Medication Reconciliation Form, Thank You Letter, Antibiotic Education, Prescription Opioid Use. Follow up: Private Physician; When: 2 - 3 days; Reason: Recheck today's complaints, Continuance of care, Re-evaluation by your physician. Problem is new. Symptoms have improved. jr8
--- NOTE | 2020-02-21 12:47 | ER ---
Nurse's Notes [facility] Name: Keisha Dave Age: 59 yrs Sex: Female : 1960 Arrival Date: 02/21/2020 Time: 11:09 Bed 14 Private MD: Diagnosis: Acute pain due to trauma;Concussion Presentation: 02/20 11:12 Chief complaint: Patient states: Fell last night. Standing on top of a step, was coming ca1 down, I stepped on my cat and when he moved away, lost my balance and fell backward. Hit head on edge of desk, hurt my neck, back and R elbow. Denies LOC. Not on blood thinners. Reports dizziness, headache and blurry vision of both eyes. Coronavirus screen: Client denies travel out of the [place] in the last 14 days. At this time, the client does not indicate any symptoms associated with coronavirus-19. Ebola Screen: Patient negative for fever greater than or equal to 101.5 degrees Fahrenheit, and additional compatible Ebola Virus Disease symptoms Patient denies exposure to infectious person. Patient denies travel to an Ebola-affected area in the 21 days before illness onset. No symptoms or risks identified at this time. Initial Sepsis Screen: Does the patient meet any 2 criteria? No. Patient's initial sepsis screen is negative. Does the patient have a suspected source of infection? No. Patient's initial sepsis screen is negative. Risk Assessment: Do you want to hurt yourself or someone else? Patient reports no desire to harm self or others. Onset of symptoms was February 21, 2020. 11:12 Method Of Arrival: Ambulatory ca1 11:12 Acuity: CHRISTINE 4 ca1 Historical: - Allergies: 11:16 No Known Allergies; ca1 - Home Meds: 11:16 Prozac 60mg daily Oral [Active]; ca1 - PMHx: 11:16 Hernia; ca1 - PSHx: 11:16 Hysterectomy; ; ca1 - Immunization history:: Adult Immunizations up to date. - Social history:: Smoking status: Patient denies any tobacco usage or history of. Screenin:30 Abuse screen: Denies threats or abuse. Denies injuries from another. Nutritional ss screening: No deficits noted. Tuberculosis screening: Never had TB. Fall Risk Fall in past 12 months (25 points). No secondary diagnosis (0 pts). No IV (0 pts). Ambulatory Aid- None/Bed Rest/Nurse Assist (0 pts). Gait- Normal/Bed Rest/Wheelchair (0 pts) Mental Status- Oriented to own ability (0 pts). Assessment: 11:30 General: Appears uncomfortable, Behavior is calm, cooperative, Denies fever, feeling ss ill, fatigue, chills. Pain: Complains of pain in head in enitre, R arm and posterior neck Pain currently is 5 out of 10 on a pain scale. Quality of pain is described as "sore, tender" Pain began last night after falling. Is continuous. Neuro: Level of Consciousness is awake, alert, obeys commands, Oriented to person, place, time, situation, Speech is normal, Facial symmetry appears normal, Pupils are PERRLA, Reports intermittent dizziness that is worse when closing eyes. Dr. Davis recommended patient come to ED for CT of head. Cardiovascular: Pulses are palpable in right radial artery and left radial artery. Respiratory: Airway is patent Respiratory effort is even, unlabored, Respiratory pattern is regular, symmetrical. GI: Patient currently denies diarrhea, nausea, vomiting. : No signs and/or symptoms were reported regarding the genitourinary system. EENT: Oral mucosa is moist. Throat is clear. Derm: Skin is intact, is healthy with good turgor, Skin is dry, Skin is pink, warm \\T\\ dry. normal. Musculoskeletal: Circulation, motion, and sensation intact. Range of motion: intact in all extremities, Swelling absent. 11:46 Reassessment: Pt to CT now VIA wheelchair. ss Vital Signs: 11:12 BP 130 / 97; Pulse 86; Resp 15 S; Temp 97.1(TE); Pulse Ox 99% on R/A; Weight 79.38 kg ca1 (R); Height 5 ft. 4 in. (162.56 cm) (R); Pain 5/10; 11:12 Body Mass Index 30.04 (79.38 kg, 162.56 cm) ca1 ED Course: 11:09 Patient arrived in ED. mr 11:16 Triage completed. ca1 11:16 Arm band placed on right wrist. ca1 11:21 Natan Zhang MD is Attending Physician. kdr 11:30 Patient has correct armband on for positive identification. Bed in low position. Call ss light in reach. 11:40 Marium Neumann, RN is Primary Nurse. ss 11:50 CT Head C Spine In Process Unspecified. EDMS 12:52 No provider procedures requiring assistance completed. Patient did not have IV access ss during this emergency room visit. Administered Medications: 11:44 Drug: Franklin (7.5 mg-325 mg) 1 tabs Route: PO; ss 12:53 Follow up: Response: No adverse reaction ss Outcome: 12:46 Discharge ordered by MD. bee 12:52 Discharged to home ambulatory. ss 12:52 Condition: good 12:52 Discharge instructions given to patient, Instructed on discharge instructions, follow up and referral plans. medication usage, Demonstrated understanding of instructions, follow-up care, medications, Prescriptions given X 2. 12:53 Patient left the ED. ss Signatures: Dispatcher [employer] EDMS Natan Zhang MD MD kdr Rivera, Mary mr Marium Neumann, RN RN Cristopher Bradford PA PA jr8 Acob, Cheryl, RN RN ca1
[2020-02-21 13:36] VITALS: BP 130/97; TEMP 97.1; O2SAT 99
== END 2020-02-21 12:53 | disposition home or self-care (01) ==
LOC: ER 11:03
DX: S06.0X0A Concussion without loss of consciousness, initial encounter (principal); W11.XXXA Fall on and from ladder, initial encounter; Y93.89 Activity, other specified; Y92.9 Unspecified place or not applicable
CPT/HCPCS: 70450; 72125; 99283

== ENCOUNTER 2023-12-17 20:56 | Emergency (ER) | payer OTHER ==
--- OUTSIDE RECORDS SUMMARY | 2023-12-17 20:59 | XMS REPORT | Continuity of Care Document ---
Author Name Unknown Address [address] [place] [address] [facility] thconnect Address [address] [place] [address] Care Team Providers Care Floor Person Name Role Phone Provider, [facility] Attending Clinician Un available Cindi Hollingsworth Attending Clinician [phone] CINDI PHILLIPS Attending Clinician Unavail able Doctor Unassigned, [place] Attending Clinician U navailable Payers Payer Name Policy Type Policy Number Effective Date Expirati on Date Source Problems Condition Name Condition Details Condition Category Status Onset Date Resolution Date Last Treatment Date Treating Clinician Comments Source No known active problems No known active problems Disease [facility] Allergies, Adverse Reactions, Alerts Allergy Name Allergy Type Status Severity Reaction(s) Onset Date Inactive Date Treating Clinician Comments Source NO KNOWN ALLERGIE S Drug Class Active [facility] Social History Social Habit Start Date Stop Date Quantity Comments Source Exposure to SARS-CoV-2 (event) Not sure [facility] Sex Assigned At 1960 00:00:00 1960 00:00:00 [facility] Smoking Status Start Date Stop Date Source Unknown if ever smoked [facility] Medications Ordered Medication Name Filled Medication Name Start Date Stop Date Current Medication? Ordering Clinician Indication Dosage Frequency Signature (SIG) Comments Components Source No known medications No Un [facility] Vital Signs Vital Name Observation Time Observation Value Comments Sandra goode Systolic blood pressure 2020-09-05 00:12:00 132 mm[Hg] [facility] Diastolic blood pressure 2020-09-05 00:12:00 94 mm[Hg] [facility] Heart rate 2020-09-05 00:12:00 88 /min [facility] Body temperature 2020-09-05 00:12:00 37.11 Kate [facility] Body height 2020-09-05 00:12:00 162.6 cm [facility] Body weight 2020-09-05 00:12:00 81.647 kg [facility] BMI 2020-09-05 00:12:00 30.90 kg/m2 [facility] Oxygen saturation in Arterial blood by Pulse oximetry 2020-09-05 00:12:00 96 /min [place] [facility] Encounters Start Date/Time End Date/Time Encounter Type Admission Type Attending Clinicians Care Facility Care Department Encounter ID Source 2020-09-04 19:07:40 2020-09-04 19:27:40 Urgent Care Provider, [facility] Cindi Phillips [facility] [id number] [facility] 2020-09-04 19:20:00 2020-09-04 19:20:00 Outpatient R CINDI PHILLIPS [facility] [id number] [facility] 2020-09-04 00:00:00 2020-09-04 00:00:00 Letter (Out) Doctor Unassigned, [place] [facility] [id number] [facility] 2020-09-04 00:00:00 2020-09-04 00:00:00 Letter (Out) Doctor Unassigned, [place] [facility] [id number] [facility] Results Test Description Test Time Test Comments Results Result Co mments Source
--- NOTE | 2023-12-17 21:14 | EDPHYS ---
Physician Documentation [facility] Name: Keisha Dave Age: 63 yrs Sex: Female : 1960 Arrival Date: 12/17/2023 Time: 20:56 Bed 2 Private MD: ED Physician Ej Glez HPI: 12/16 21:04 This 63 yrs old Female presents to ER via Unassigned with complaints of Cat ec2 Bite, CAT SCRATCHES. 21:04 Patient arrives today for evaluation of scratches and bite from the feline. States that ec2 she had previously had a cat scratch fever and wanted prevent that. Patient reports injury occurred just prior to arrival. States her last tetanus shot was approximately 2 years ago. Patient reports otherwise no other concerns, no medication allergies.. Historical: - Allergies: 21:08 No Known Allergies; tl4 - Home Meds: 21:08 Prozac 60mg daily Oral [Active]; tl4 - PMHx: 21:08 Hernia; Depressive disorder; Cat scratch fever; tl4 - PSHx: 21:08 section; Total abdominal hysterectomy; tl4 - Immunization history:: Last tetanus immunization: up to date. - Infectious Disease History:: Denies. - Social history:: Smoking status: Patient denies any tobacco usage or history of. ROS: 21:04 Constitutional: as per hpi ec2 Exam: 21:04 Constitutional: GEN: NAD Head: atraumatic Eyes: EOMI Ears: External ears are ec2 normal. CV: regular rate LUNGS: no respiratory distress ABD: non-distended SKIN: multiple superficial abrasions and lesions on the right upper and left upper extremity. MSK: no evidence of trauma NEURO: moves all extremities equally Vital Signs: 21:05 BP 112 / 76; Pulse 83; Resp 16; Temp 97.6(TE); Pulse Ox 99% on R/A; Weight 72.57 kg; tl4 Height 5 ft. 4 in. ; Pain 5/10; 21:42 BP 118 / 69; Pulse 78; Resp 18; Temp 98.6; Pulse Ox 99% on R/A; Pain 0/10; kd4 21:05 Body Mass Index 27.46 (72.57 kg, 162.56 cm) tl4 21:05 Pain Scale: Adult tl4 21:42 Pain Scale: Adult kd4 Damari Coma Score: 21:40 Eye Response: spontaneous(4). Motor Response: obeys commands(6). Verbal Response: kd4 oriented(5). Total: 15. MDM: 21:03 Patient medically screened. ec2 21:04 Data reviewed: vital signs. ED course: Patient arrives today for evaluation after being ec2 bitten and scratched by cat. Examination remarkable for well-appearing nontoxic vigorous otherwise in no acute distress. Will irrigate and clean the wounds, dressed the wounds, start the patient on Augmentin. Differential included cellulitis, abscess, bony fracture, laceration.. 12/16 21:03 Order name: Wound Care; Complete Time: : ec2 12/16 21:03 Order name: Wound dressing; Complete Time: : ec2 Administered Medications: 21: Drug: Amoxicillin-Clavulanate PO 875 mg PO once Route: PO; bm8 21:47 Follow up: Response: No adverse reaction kd4 Disposition Summary: 12/17/23 21:14 Discharge Ordered Notes: Location: Home ec2 Condition: Stable ec2 Diagnosis - Bitten by cat ec2 Followup: ec2 - With: Private Physician - When: - Reason: Re-evaluation by your physician Discharge Instructions: - Discharge Summary Sheet ec2 - Animal Bite, Adult, [id number] ec2 Forms: - Medication Reconciliation Form ec2 - Antibiotic Education ec2 - Prescription Opioid Use ec2 - Patient Portal Instructions ec2 - Leadership Thank You Letter ec2 Prescriptions: - Augmentin 875-125 mg Oral Tablet - take 1 tablet ORAL route every 12 hours for 10 days; 20 tablet; Refills: 0, ec2 Product Selection Permitted Signatures: Ej Glez MD MD ec2 Hans Cervantes RN RN tl4 Samir Barrientos RN RN bm8 Corey Adams RN kd4
--- NOTE | 2023-12-17 21:14 | ER ---
Nurse's Notes [facility] Name: Keisha Dave Age: 63 yrs Sex: Female : 1960 Arrival Date: 12/17/2023 Time: 20:56 Bed 2 Private MD: Diagnosis: Bitten by cat Presentation: 12/16 21:05 Chief complaint: Patient states: Pt states she was bit and scratched by her own cat. Pt tl4 thinks immunizations are up to date. Coronavirus screen: At this time, the client does not indicate any symptoms associated with coronavirus-19. Ebola Screen: No symptoms or risks identified at this time. Initial Sepsis Screen: Does the patient meet any 2 criteria? No. Patient's initial sepsis screen is negative. Does the patient have a suspected source of infection? No. Patient's initial sepsis screen is negative. Risk Assessment: Do you want to hurt yourself or someone else? Patient reports no desire to harm self or others. Onset of symptoms was December 17, 2023 at 20:30. 21:05 Method Of Arrival: Ambulatory tl4 21:05 Acuity: CHRISTINE 4 tl4 Triage Assessment: 21:10 Bite description: bite sustained to right hand, right arm and left arm by a cat, animal tl4 information: Appearance: appeared well, is from animal, vaccination(s) is current, was sustained 30-60 minutes ago. General: Appears in no apparent distress. Behavior is calm, cooperative. Pain: Complains of pain in right hand, right arm and left arm. EENT: No signs and/or symptoms were reported regarding the EENT system. Neuro: Level of Consciousness is awake, alert, obeys commands, Oriented to person, place, time, situation, Moves all extremities. Full function Speech is normal. Cardiovascular: Capillary refill < 3 seconds Patient's skin is warm and dry. Respiratory: Airway is patent Respiratory effort is even, unlabored, Respiratory pattern is regular, symmetrical. GI: No signs and/or symptoms were reported involving the gastrointestinal system. : No signs and/or symptoms were reported regarding the genitourinary system. Derm: bite type wounds to bilateral arms, right hand. Musculoskeletal: No signs and/or symptoms reported regarding the musculoskeletal system. Historical: - Allergies: 21:08 No Known Allergies; tl4 - Home Meds: 21:08 Prozac 60mg daily Oral [Active]; tl4 - PMHx: 21:08 Hernia; Depressive disorder; Cat scratch fever; tl4 - PSHx: 21:08 section; Total abdominal hysterectomy; tl4 - Immunization history:: Last tetanus immunization: up to date. - Infectious Disease History:: Denies. - Social history:: Smoking status: Patient denies any tobacco usage or history of. Screenin:40 [facility] ED Fall Risk Assessment (Adult) History of falling in the last 3 months, kd4 including since admission No falls in past 3 months (0 pts) Confusion or Disorientation No (0 pts) Intoxicated or Sedated No (0 pts) Impaired Gait No (0 pts) Mobility Assist Device Used No (0 pt) Altered Elimination No (0 pt) Score/Fall Risk Level 0 - 2 = Low Risk. Abuse screen: Denies threats or abuse. Nutritional screening: No deficits noted. Tuberculosis screening: No symptoms or risk factors identified. Assessment: 21:40 General: Appears in no apparent distress. comfortable. Pain: Denies pain. Neuro: No kd4 deficits noted. Cardiovascular: Denies chest pain, shortness of breath. Respiratory: No deficits noted. Denies cough, shortness of breath labored breathing. Derm: Skin cat bite to devan arm and hand. 21:43 General: patient cat bite cleaned , abt given. d/c instruction given to patient. she kd4 verbalizes understanding of instruction, prescription given.. 21:45 Derm: Skin is pink, warm \T\ dry. kd4 Vital Signs: 21:05 BP 112 / 76; Pulse 83; Resp 16; Temp 97.6(TE); Pulse Ox 99% on R/A; Weight 72.57 kg; tl4 Height 5 ft. 4 in. ; Pain 5/10; 21:42 BP 118 / 69; Pulse 78; Resp 18; Temp 98.6; Pulse Ox 99% on R/A; Pain 0/10; kd4 21:05 Body Mass Index 27.46 (72.57 kg, 162.56 cm) tl4 21:05 Pain Scale: Adult tl4 21:42 Pain Scale: Adult kd4 Damari Coma Score: 21:40 Eye Response: spontaneous(4). Motor Response: obeys commands(6). Verbal Response: kd4 oriented(5). Total: 15. ED Course: 20:57 Patient arrived in ED. [id number] 20:57 Ej Glez MD is Attending Physician. ec2 21:08 Triage completed. tl4 21:12 Arm band placed on left wrist. tl4 21:30 Patient has correct armband on for positive identification. Provided Education on: d/c kd4 instruction. 21:44 Dressings: 4X4s. kd4 21:45 No provider procedures requiring assistance completed. Patient did not have IV access kd4 during this emergency room visit. Administered Medications: 21:22 Drug: Amoxicillin-Clavulanate PO 875 mg PO once Route: PO; bm8 21:47 Follow up: Response: No adverse reaction kd4 Medication: 21:46 VIS not applicable for this client. kd4 Outcome: 21:14 Discharge ordered by . ec2 21:45 Discharged to home ambulatory, kd4 21:45 Condition: good 21:45 Discharge instructions given to patient, Instructed on discharge instructions, Demonstrated understanding of instructions, follow-up care, medications, Prescriptions given X 1, 21:47 Patient left the ED. kd4 Signatures: Mary Ndiaye [id number] Ej Glez MD MD ec2 Hans Cervantes RN RN tl4 Samir Barrientos, RN RN bm8 Corey Adams RN RN kd4
[2023-12-17] MEDS ORDERED: AMOX/K CLAV 875 MG TAB ONE (21:21)
[2023-12-17 21:51] VITALS: O2SAT 99
[2023-12-17 21:53] VITALS: BP 118/69; TEMP 98.6
== END 2023-12-17 21:47 | disposition home or self-care (01) ==
LOC: ER 20:56
DX: S40.872A Other superficial bite of left upper arm, initial encounter (principal); S40.871A Other superficial bite of right upper arm, initial encounter; W55.01XA Bitten by cat, initial encounter
CPT/HCPCS: 99283